=== PATIENT | female | born 1975 | race Two or more races ===

== ENCOUNTER 2020-04-24 16:54 | Emergency (ER) | payer SELFPAY ==
[~2020-04-24] VITALS: Ht 165.1 cm; Wt 78.2 kg
[~2020-04-24 16:54] MED LIST: ACET-704 PO; IBUP-1060 PO
[2020-04-24 17:00] VITALS: BP 143/70
--- NOTE | 2020-04-24 17:42 | RAD ---
CERVICAL SPINE 2-3V DATE: 04/24/2020 5:22 PM INDICATION: Reason: Neck pain x a week, no injury / Spl. Instructions: / History: COMPARISON: None. FINDINGS: The cervical spine is visualized to the level of the cervicothoracic junction on the lateral views. Bones/Alignment: No evidence of acute fracture. There is no listhesis. Normal alignment of the lateral masses of C1 on C2. Joints: Mild degenerative disc disease. The facets are normally aligned. Soft tissue: No significant prevertebral soft tissue swelling. IMPRESSION: No evidence of acute fracture. Degenerative changes. Electronically signed by: Dk Burton MD (04/24/2020 5:39 PM) [facility]
[2020-04-24] MEDS ORDERED: CYCL10TA2 PO (18:25)
[2020-04-24] MEDS ORDERED: METH4TAB2 PO (18:25)
[2020-04-24] MEDS ORDERED: DICL50TA2 PO (18:25)
--- NOTE | 2020-04-24 18:25 | PHYS DOC ---
Past Medical History Past Medical History: No Pertinent History Past Surgical History: No Surgical History Smoking Status: Never Smoker Alcohol Use: None General Adult EDM: Chief Complaint: Neck Pain HPI: HPI: Patient is a 44 year old female who presents to the ED today complaining of 7 out of 10 posterior neck pain that began 10 days ago. Patient reports the pain is sharp intermittent worse on range of motion especially when she flexes her neck. Denies anything specifically relieving the pain. Denies any pain radiating to bilateral upper extremities Mentally Impaired Teacher line was used for Yi Review of Systems: Review of Systems: Constitutional: Denies fever or chills. [] Musculoskeletal: Reports neck pain Integument: Denies rash. [] Neurologic: Denies headache, focal weakness or sensory changes. [] Psychiatric: Denies depression or anxiety. [] Heart Score: Risk Factors: Risk Factors: DM, Current or recent (<one month) smoker, HTN, HLP, family history of CAD, obesity. Risk Scores: Score 0 - 3: 2.5% MACE over next 6 weeks - Discharge Home Score 4 - 6: 20.3% MACE over next 6 weeks - Admit for Clinical Observation Score 7 - 10: 72.7% MACE over next 6 weeks - Early Invasive Strategies Allergies: Allergies: Allergies Coded Allergies Type Severity Reaction Last Updated Verified No Known Drug Allergies 11/01/14 No Physical Exam: PE: Constitutional: Well developed, well nourished, no acute distress, non-toxic appearance. [] HENT: Normocephalic, atraumatic, bilateral external ears normal, oropharynx moist, no oral exudates, nose normal. [] Eyes: PERRLA, EOMI, conjunctiva normal, no discharge. [] Neck: Normal range of motion, diffuse paraspinal muscle tenderness posterior cervical spine, no midline cervical spine tenderness, supple, no stridor. [] ] Skin: Warm, dry, no erythema, no rash. [] Back: No tenderness, no CVA tenderness. [] Extremities: No tenderness, no cyanosis, no clubbing, ROM intact, no edema. [] Neurologic: Alert and oriented X 3, normal motor function, normal sensory function, no focal deficits noted. [] Psychologic: Affect normal, judgement normal, mood normal. [] Current Patient Data: Vital Signs: Vital Signs Date Time Temp Pulse Resp B/P (MAP) Pulse Ox O2 Delivery O2 Flow Rate FiO2 04/24/20 17:00 97.2 80 12 143/70 (94) 98 Room Air 97.2 EKG: EKG: [] Radiology/Procedures: Radiology/Procedures: []PROCEDURE: CERVICAL SPINE 2-3V CERVICAL SPINE 2-3V DATE: 04/24/2020 5:22 PM INDICATION: Reason: Neck pain x a week, no injury / Spl. Instructions: / History: COMPARISON: None. FINDINGS: The cervical spine is visualized to the level of the cervicothoracic junction on the lateral views. Bones/Alignment: No evidence of acute fracture. There is no listhesis. Normal alignment of the lateral masses of C1 on C2. Joints: Mild degenerative disc disease. The facets are normally aligned. Soft tissue: No significant prevertebral soft tissue swelling. IMPRESSION: No evidence of acute fracture. Degenerative changes. Electronically signed by: Destiny Orosco MD (04/24/2020 5:39 PM) [facility] DICTATED and SIGNED BY: DESTINY OROSCO MD DATE: 04/24/20 1739 Course & Med Decision Making: Course & Med Decision Making Pertinent Labs and Imaging studies reviewed. (See chart for details) This is a 44-year-old female patient presenting to the ED today with posterior neck pain for 10 days, no known injury. Cervical spine x-rays interpreted by radiologist are negative for any acute findings. Discharge to home with Medrol Dosepak, cyclobenzaprine and diclofenac. Follow-up with PCP in 1 to 2 weeks. Heat recommended to the neck. Dragon Disclaimer: Fernanda Disclaimer: This electronic medical record was generated, in whole or in part, using a voice recognition dictation system. Departure Departure Impression: Primary Impression: Neck pain Disposition: HOME, SELF-CARE Condition: STABLE Patient Instructions: Cervical Sprain, [id number] Additional Instructions: You were seen for neck pain, your neck x-rays are negative for any acute findings. Take the prescribed medications as ordered. Follow-up with your doctor in 1 to 2 weeks. Scripts Diclofenac Potassium (DICLOFENAC POTASSIUM) 50 Mg Tablet 1 TAB PO BID, #20 TAB Prov: MUTUNGA,ROSA FISH HATCHERY ASSISTANT 04/24/20 Cyclobenzaprine Hcl (CYCLOBENZAPRINE HCL) 10 Mg Tablet 1 TAB PO TID, #30 TAB Prov: MUTUNGA,ROSA FISH HATCHERY ASSISTANT 04/24/20 Methylprednisolone (MEDROL) 4 Mg Tab.ds.pk 1 PKG PO UD, #1 PKG Prov: ROSA ZIMMERMAN APRN 04/24/20 Justicifation of Admission Dx: Justifications for Admission: Justification of Admission Dx: N/A ROSA ZIMMERMAN APRN Apr 24, 2020 18:25
== END 2020-04-24 18:55 | disposition home or self-care (01) ==
LOC: ER 16:54
DX: M54.2 Cervicalgia (principal)
CPT/HCPCS: 72040; 99283